=== PATIENT | male | born 1970 | race Caucasian/White ===

== ENCOUNTER → 2021-12-15 | Outpatient (CLI) | payer OTHER | LOC: RAD 16:36 | DX: J30.9 Allergic rhinitis, unspecified (principal) | CPT/HCPCS: 71046 ==

== ENCOUNTER → 2021-12-15 | Outpatient (CLI) | payer OTHER | LOC: HEART 5 13:45 | DX: R06.09 Other forms of dyspnea (principal); R06.02 Shortness of breath | CPT/HCPCS: 94010; 94729; 95012 ==

== ENCOUNTER → 2021-12-26 | Outpatient (CLI) | payer OTHER | LOC: ECHO 12-21 12:15 | DX: J30.9 Allergic rhinitis, unspecified (principal); I34.0 Nonrheumatic mitral (valve) insufficiency | CPT/HCPCS: ECHO; 93306 ==